=== PATIENT | female | born 1960 | race Caucasian/White ===

== ENCOUNTER 2022-07-23 15:43 | Emergency (ER) | payer MEDICARE, MEDICAID ==
[~2022-07-23] VITALS: Ht 162.6 cm; Wt 65.9 kg
[2022-07-23 15:55] VITALS: BP 115/84
--- NOTE | 2022-07-23 16:12 | NUR ---
Transport home is daughter Daysi,
[2022-07-23] MEDS ORDERED: LIDOcaine 5% patch TP STA (17:16)
[2022-07-23] MEDS ORDERED: HYDROcodone/acetaminophen 10/325mg tab PO ONE (17:20)
[2022-07-23] MEDS ORDERED: HYDR-3968 PO (18:23)
== END 2022-07-23 18:34 | disposition home or self-care (01) ==
LOC: ER 15:43
DX: M19.011 Primary osteoarthritis, right shoulder (principal); M25.511 Pain in right shoulder; G89.29 Other chronic pain; Z88.6 Allergy status to analgesic agent; Z88.1 Allergy status to other antibiotic agents
CPT/HCPCS: 99283

== ENCOUNTER 2022-11-01 06:04 | Inpatient (IN) | payer BC, MEDICAID ==
[2022-10-27 12:07] LABS: CLARITY,URINE CLEAR (Clear); COLOR,URINE YELLOW (Yellow); GLUCOSE, URINE NEGATIVE (Neg); KETONES,URINE NEGATIVE (Neg); LEUKOCYTE ESTERASE ,URINE NEGATIVE (Neg); NITRITES, URINE NEGATIVE (Neg); OCCULT BLOOD,URINE NEGATIVE (Neg); PH,URINE 5.5 (4.8-8.0); PROTEIN,URINE NEGATIVE (Neg); UROBILINOGEN,URINE 0.2 E.U/dL (0.2-1.0)
[2022-10-27 12:13] LABS: UA COLLECTION TYPE CLN CATCH MIDSTREAM
[2022-10-27 12:14] LABS: BASOPHILS % (AUTO) 0.2 % (0-1); EOSINOPHILS # (AUTO) 0.2 X10'3 (0-0.9); EOSINOPHILS % (AUTO) 2.5 % (0-6); LYMPHOCYTES # (AUTO) 2.2 X10'3 (1.1-4.8); LYMPHOCYTES % (AUTO) 23.8 % (21-51); MEAN CORPUSCULAR HEMOGLOBIN 29.3 PG (27.0-31.0); MEAN CORPUSCULAR HGB CONC 33.3 g/dL (33.0-36.5); MEAN PLATELET VOLUME 7.6 FL (7.4-10.4); MONOCYTES # (AUTO) 0.8 X10'3 (0-0.9); MONOCYTES % (AUTO) 8.3 % (2-12); NEUTROPHILS % (AUTO) 65.2 % (42-75); PRE OP HEMATOCRIT 41.5 % (35.0-45.0); PRE OP HEMOGLOBIN 13.8 g/dL (12.0-16.0); PRE OP PLATELET COUNT 281 X10'3 (140-440); RED BLOOD COUNT 4.71 X10'6 (4.20-5.60); RED CELL DISTRIBUTION WIDTH 15.8 % (11.5-14.5)
[2022-10-27 12:40] LABS: ALBUMIN 3.9 G/DL (3.4-5.0); ALBUMIN/GLOBULIN RATIO 0.9 (1.1-1.5); ALKALINE PHOSPHATASE 99 IU/L (46-116); BLOOD UREA NITROGEN 18 MG/DL (7-18); BUN/CREATININE RATIO 20.9 (10.0-20.0); CALCIUM 9.5 MG/DL (8.5-10.1); CHLORIDE 104 MMOL/L (99-107); CREATININE 0.86 MG/DL (0.40-0.90); PRE OP ALT 46 U/L (30-65); PRE OP ANION GAP 9 (8-16); PRE OP AST 38 U/L (10-37); PRE OP BILIRUB, TOTAL 0.3 MG/DL (0.0-1.0); PRE OP GLUCOSE 77 MG/DL (70-104); PRE OP POTASSIUM 3.8 MMOL/L (3.4-5.1); PRE OP SODIUM 140 MMOL/L (135-145); TOTAL CARBON DIOXIDE 27.4 MMOL/L (24-32); TOTAL PROTEIN 8.2 G/DL (6.4-8.2); eGFR 67 ML/MIN
[~2022-11-01] VITALS: Ht 162.6 cm; Wt 71.0 kg
[2022-11-01] VITALS (17 sets, daily range): BP systolic 118–165; BP diastolic 69–110
[2022-11-01] MEDS: famotidine 20mg tablet PO ONE ×2 (05:30→06:58)
[~2022-11-01 06:04] MED LIST: ALBU6.7H14 INH; DIPH-186 PO; DIPH25TA62 PO; ETAN50CA3 SUBCUT; HYDR25TA5 PO; LOSA50TA3 PO; ONDA4TAB12 PO; TIZA4TAB11 PO; TRAZ-251 PO; cefazolin 2gm/D5W 100mL 100 ML IV ONE; ringers solution, lacted 1,000 ML IV SCH
--- NOTE | 2022-11-01 11:31 | NUR ---
PATIENT VERY PAINFULL, DR RODRIGUEZ HAS BEEN CONTACTED AND IS IN OR UNABLE TO CONSENT PATIENT FOR SURGERY AND STATED WHEN HE COMES OUT IN 20MIN WILL CONSENT PATIENT AND THEN WILL GIVE ORDERS FOR PAIN MEDS. I EXPLAINED THIS TO PATIENT AND SHE IS AWARE CONSENT NEEDS TO BE DONE PRIOR TO NARCOTIC ADMINISTRATION.
[2022-11-01] MEDS ORDERED: ketorolac trometh. 30mg/ml inj. ONE (11:49)
[2022-11-01] MEDS ORDERED: BUPIVAcaine/PF 5 mg/ml 10ml ONE ×2 (11:50→11:57)
[2022-11-01] MEDS ORDERED: ROPIVAcaine 0.5% (5mg/ml) 30ml vial ONE (11:50)
[2022-11-01] MEDS ORDERED: BUPIVACAINE liposomal/PF 13.3 MG/ML vial IM ONE (11:57)
[2022-11-01] MEDS ORDERED: vancomycin 1,000mg inj ONE (11:58)
[2022-11-01] MEDS ORDERED: fentaNYL/PF 50MCG/1 ML 2ML syringe ONE ×2 (12:05→13:08)
[2022-11-01] MEDS ORDERED: midazolam 1 mg/ML 2ml injection ONE (12:05)
[2022-11-01] MEDS ORDERED: tranexamic acid 100mg/ml inj. ONE (12:33)
[2022-11-01] MEDS ORDERED: propofol inj 20 ML IV ONE (13:08)
[2022-11-01] MEDS ORDERED: morphine 2 MG/ML inj. syringe IV PRN (13:30)
[2022-11-01] MEDS ORDERED: ondansetron/PF 4mg/2ml inj IV PRN (13:30)
[2022-11-01] MEDS ORDERED: labetalol 20mg/4ml (5mg/ml) syringe IV PRN (13:30)
[2022-11-01] MEDS ORDERED: proCHLORperazine 10 MG/2 ml inj IV PRN (13:30)
[2022-11-01] MEDS ORDERED: ringers solution, lacted 1,000 ML IV SCH (13:30)
[2022-11-01] MEDS ORDERED: ketorolac trometh. 30mg/ml inj. IV ONE (13:30)
[2022-11-01] MEDS ORDERED: meperidine/PF 25mg/ml syringe IV PRN ×3 (13:30)
[2022-11-01] MEDS ORDERED: morphine 4 MG/ML inj SYRINge IV PRN (13:30)
[2022-11-01] MEDS ORDERED: labetalol 20mg/4ml (5mg/ml) syringe IV ONE (14:37)
[2022-11-01] MEDS ORDERED: acetaminophen 1,000mg/100ml IV 100 ML IV ONE (14:38)
[2022-11-01] MEDS ORDERED: ondansetron/PF 4mg/2ml inj ONE (14:42)
[2022-11-01] MEDS ORDERED: dexamethasone sod phosphate 4mg/ml inj. ONE (14:42)
--- NOTE | 2022-11-01 15:06 | NUR ---
Received from OR via HOSPITAL BED TO RECOVERY ROOM BED 6, accompanied by DR PALMER Anesthesiologist and report given by Anesthesiolgist. PT PRESENTS WITH 20G LEFT AC,SPO2 100% 10L MASK, LR RUNNING AT 100MLS/HR, VSS. Addendum: 11/01/22 at 1539 by Cherise Ervin RN, RN Amended: Links added.
[2022-11-01] MEDS ORDERED: diphenhydrAMINE 25mg capsule PO PRN (15:15)
[2022-11-01] MEDS ORDERED: naloxone 0.4 mg/ml inj IV PRN (15:15)
[2022-11-01] MEDS ORDERED: oxyCODONE IR 5mg (immed. release) tablet PO PRN (15:15)
[2022-11-01] MEDS: potassium cl 20mEq in 1/2 NS 1,000 ML IV SCH (15:15)
[2022-11-01] MEDS ORDERED: bisacodyl 10mg suppository rectal RC PRN (15:15)
[2022-11-01] MEDS ORDERED: acetaminophen 325mg tablet PO PRN (15:15)
--- NOTE | 2022-11-01 16:34 | NUR ---
SHOULDER WRAP WITH POWDER PACK PLACED ON RIGHT SHOULDER
--- NOTE | 2022-11-01 17:06 | NUR ---
Report called to receiving nurse GIACOMO SALDIVAR. Transferred via HOSPITAL BED TO ROOM 360B. BED IN [facility] POSTION WITH CALL LIGHT IN REACH, PT HOOKED UP TO BEDSIDE MONITOR. GIACOMO SALDIVAR AT BEDSIDE. MISHA PT Belonging BAGS TO PT ROOM. Special Issues communicated to receiving nurse. Addendum: 11/01/22 at 1724 by Cherise Ervin RN RN Amended: Links added.
[2022-11-01] MEDS ORDERED: diphenoxylate/atropine tablet (Lomotil) PO PRN (19:25)
[2022-11-01] MEDS: oxyCODONE IR 5mg (immed. release) tablet PO PRN (19:28)
[2022-11-01] MEDS: sennosides 8.6mg tablet PO SCH (19:29)
[2022-11-01] MEDS ORDERED: albuterol 2.5 MG/3 ML nebule NEB PRN (20:00)
[2022-11-01] MEDS ORDERED: cefazolin 2gm/D5W 100mL 100 ML IV SCH (20:00)
[2022-11-01] MEDS ORDERED: losartan 50mg tablet PO SCH (21:00)
[2022-11-01] MEDS ORDERED: traZODone 50mg tablet PO PRN (22:50)
[2022-11-01] MEDS: ondansetron 4mg rapidly disintigrating tab PO PRN (23:10)
[2022-11-02] MEDS: oxyCODONE IR 5mg (immed. release) tablet PO PRN ×3 (00:18→12:11)
[2022-11-02 00:21] VITALS: BP 127/70
--- NOTE | 2022-11-02 01:30 | NUR ---
PT WAS NAUSEOUS AND HAD EMESIS; WAS VERY ANXIOUS. SHE PULLED OUT HER IV BY ACCIDENT; VERY IMPULSIVE. HER ORAL ZOFRAN WAS GIVEN AND DID NOT RELIEVE HER NAUSEA AND VOMITING. IV ZOFRAN WAS GIVEN. PATIENT WAS STILL NAUSEOUS BUT WAS ABLE TO REST SOME. WILL CONTINUE TO MONITOR.
[2022-11-02 02:00] VITALS: BP 180/99
[2022-11-02] MEDS: ondansetron/PF 4mg/2ml inj IV PRN ×2 (02:06→19:09)
[2022-11-02] MEDS: potassium cl 20mEq in 1/2 NS 1,000 ML IV SCH ×2 (04:35→22:02)
--- NOTE | 2022-11-02 05:50 | NUR ---
PT WAS GIVEN SOME SALTINES CRACKERS TO HELP SETTLE HER STOMACH. PATIENT WAS NAUSEOUS AND VOMITED AFTER TAKING HER OXY IR. Addendum: 11/02/22 at 0702 by Maria Eugenia Hernandez RN PT ALSO PULLED OUT HER IV PRIOR TO GIVING HER OXY IR AT AROUND 0550
[2022-11-02 06:00] VITALS: BP 196/92
--- NOTE | 2022-11-02 06:05 | NUR ---
Problems reprioritized. Patient report given, questions answered & plan of care reviewed with JANNA GOODEN.
[2022-11-02] MEDS: HYDROchlorothiazide 25mg tablet PO SCH (08:00)
[2022-11-02] MEDS ORDERED: cefazolin 2gm/D5W 100mL 100 ML IV ONE (08:00)
[2022-11-02] MEDS: ondansetron 4mg rapidly disintigrating tab PO PRN (08:25)
[2022-11-02 08:40] LABS: ANION GAP 11 (8-16); CHLORIDE 103 MMOL/L (99-107); POTASSIUM 3.2 MMOL/L (3.5-5.1); SODIUM 139 MMOL/L (135-145); TOTAL CARBON DIOXIDE 24.9 MMOL/L (24-32)
[2022-11-02 08:41] LABS: BASOPHILS % (AUTO) 0.1 % (0-1); EOSINOPHILS % (AUTO) 0 % (0-6); HEMATOCRIT 36.5 % (35.0-45.0); HEMOGLOBIN 11.9 g/dl (12.0-16.0); LYMPHOCYTES # (AUTO) 1.3 X10'3 (1.1-4.8); LYMPHOCYTES % (AUTO) 7.5 % (21-51); MEAN CORPUSCULAR HEMOGLOBIN 28.7 PG (27.0-31.0); MEAN CORPUSCULAR HGB CONC 32.7 g/dL (33.0-36.5); MEAN CORPUSCULAR VOLUME 87.8 FL (78-98); MEAN PLATELET VOLUME 8.3 FL (7.4-10.4); MONOCYTES # (AUTO) 1.8 X10'3 (0-0.9); MONOCYTES % (AUTO) 10.2 % (2-12); NEUTROPHILS # (AUTO) 14.3 X10'3 (1.8-7.7); NEUTROPHILS % (AUTO) 82.2 % (42-75); PLATELET COUNT 295 X10'3 (140-440); RED BLOOD COUNT 4.16 X10'6 (4.20-5.60); RED CELL DISTRIBUTION WIDTH 14.9 % (11.5-14.5); WHITE BLOOD COUNT 17.4 X10'3 (4.5-11.0)
[2022-11-02 10:00] VITALS: BP 124/87
[2022-11-02] MEDS ORDERED: hydrALAZINE 20mg/ml inj. IV PRN (11:00)
[2022-11-02] MEDS ORDERED: LORazepam 2 mg/ml vial IV ONE (11:55)
--- NOTE | 2022-11-02 11:58 | NUR ---
Joint surgery consult: Pt s/p R shoulder surgery this admit per EMR. Pt seen by RD for written/verbal high protein diet ed w/ RD contact information provided. Pt reports gastroparesis hx takes medication at home currently having N/V from gastroparesis since early this AM. Pt reports eats smaller more frequent meals at home declines nutrition concerns related to gastroparesis. RD encouraged pt to contact dietitian's office if further nutrition questions/concerns. Addendum: 11/02/22 at [address] Amended: Links added.
[2022-11-02] MEDS ORDERED: calcium carbonate 500mg chew tablet PO STA (12:00)
[2022-11-02] MEDS ORDERED: metoclopramide 5 mg/ml inj IV PRN (12:10)
[2022-11-02] MEDS: calcium carbonate 500mg chew tablet PO SCH ×2 (12:30→17:30)
[2022-11-02] MEDS ORDERED: losartan 25mg tablet PO SCH (14:12)
[2022-11-02] MEDS ORDERED: potassium Cl 20 mEq SR tablet PO PRN ×2 (16:25)
[2022-11-02] MEDS ORDERED: magnesium 2GM in 50ml NS 50 ML IV PRN (16:25)
[2022-11-02] MEDS ORDERED: potassium Cl 40MEQ/1/2NS 520ml 520 ML IV PRN (16:25)
[2022-11-02] MEDS ORDERED: magnesium Cl slow-release 64mg tablet PO PRN (16:25)
[2022-11-02] MEDS ORDERED: magnesium 4gm in 100ml NS 100 ML IV PRN (16:25)
--- NOTE | 2022-11-02 16:45 | NUR ---
Patient is awake, states she would like to go back to sleep. "reset"
--- NOTE | 2022-11-02 17:00 | NUR ---
Call from Dr Melendez, update on patient. Plan home tomorrow.
--- NOTE | 2022-11-02 18:20 | NUR ---
Report to Maria Eugenia SALDIVAR
[2022-11-02] MEDS: LORazepam 2 mg/ml vial IV PRN (19:09)
[2022-11-02 19:10] VITALS: BP 166/79
[2022-11-02] MEDS: K and/or MAG REPLACEMENT MC SCH (20:00)
[2022-11-02] MEDS: famotidine/PF 10 mg/ml inj IV SCH (20:40)
[2022-11-02] MEDS: sennosides 8.6mg tablet PO SCH (21:00)
[2022-11-02 22:00] VITALS: BP 158/85
[2022-11-03] MEDS: LORazepam 2 mg/ml vial IV PRN (04:11)
[2022-11-03] MEDS: ondansetron/PF 4mg/2ml inj IV PRN ×2 (04:27→12:44)
[2022-11-03 04:43] LABS: BASOPHILS % (AUTO) 0.2 % (0-1); EOSINOPHILS % (AUTO) 0 % (0-6); HEMATOCRIT 32.1 % (35.0-45.0); HEMOGLOBIN 10.7 g/dl (12.0-16.0); LYMPHOCYTES # (AUTO) 2.2 X10'3 (1.1-4.8); LYMPHOCYTES % (AUTO) 12.9 % (21-51); MEAN CORPUSCULAR HEMOGLOBIN 29.1 PG (27.0-31.0); MEAN CORPUSCULAR HGB CONC 33.3 g/dL (33.0-36.5); MEAN CORPUSCULAR VOLUME 87.3 FL (78-98); MEAN PLATELET VOLUME 7.8 FL (7.4-10.4); MONOCYTES # (AUTO) 2.2 X10'3 (0-0.9); MONOCYTES % (AUTO) 12.6 % (2-12); NEUTROPHILS # (AUTO) 12.8 X10'3 (1.8-7.7); NEUTROPHILS % (AUTO) 74.3 % (42-75); PLATELET COUNT 313 X10'3 (140-440); RED BLOOD COUNT 3.67 X10'6 (4.20-5.60); RED CELL DISTRIBUTION WIDTH 14.3 % (11.5-14.5); WHITE BLOOD COUNT 17.3 X10'3 (4.5-11.0)
[2022-11-03 04:55] LABS: ALANINE AMINOTRANSFERASE 23 U/L (12-78); ALBUMIN 2.8 G/DL (3.4-5.0); ALBUMIN/GLOBULIN RATIO 0.8 (1.1-1.5); ALKALINE PHOSPHATASE 58 IU/L (46-116); ANION GAP 6 (8-16); ASPARTATE AMINO TRANSFERASE 20 U/L (10-37); BILIRUBIN,TOTAL 0.7 MG/DL (0.1-1.0); BLOOD UREA NITROGEN 12 MG/DL (7-18); BUN/CREATININE RATIO 20.3 (10.0-20.0); CALCIUM 7.8 MG/DL (8.5-10.1); CHLORIDE 101 MMOL/L (99-107); CREATININE 0.59 MG/DL (0.40-0.90); GLUCOSE 111 MG/DL (70-104); POTASSIUM 5.4 MMOL/L (3.5-5.1); SODIUM 133 MMOL/L (135-145); TOTAL PROTEIN 6.4 G/DL (6.4-8.2); eGFR > 90 ML/MIN
[2022-11-03 05:14] LABS: TOTAL CELLS COUNTED 100
[2022-11-03 05:16] LABS: ELLIPTOCYTES FEW; PLATELET ESTIMATE NORMAL
[2022-11-03 05:17] LABS: POIKILOCYTOSIS FEW
--- NOTE | 2022-11-03 06:11 | NUR ---
Problems reprioritized. Patient report given, questions answered & plan of care reviewed with JANNA BENSON.
--- NOTE | 2022-11-03 07:00 | NUR ---
Problems reprioritized. Patient report given, questions answered & plan of care reviewed with Maria Eugenia SALDIVAR.
[2022-11-03 07:04] VITALS: BP 149/69
[2022-11-03] MEDS: K and/or MAG REPLACEMENT MC SCH (08:00)
[2022-11-03] MEDS: calcium carbonate 500mg chew tablet PO SCH ×2 (08:05→12:42)
[2022-11-03] MEDS: HYDROchlorothiazide 25mg tablet PO SCH (08:05)
[2022-11-03] MEDS: famotidine/PF 10 mg/ml inj IV SCH (08:05)
[2022-11-03] MEDS ORDERED: normal saline 1000ml 1,000 ML IV SCH (08:10)
[2022-11-03] MEDS: oxyCODONE IR 5mg (immed. release) tablet PO PRN ×2 (08:22→12:42)
[2022-11-03 11:00] VITALS: BP 113/76
[2022-11-03 12:51] LABS: ALBUMIN 2.9 G/DL (3.4-5.0); ANION GAP 10 (8-16); BLOOD UREA NITROGEN 12 MG/DL (7-18); BUN/CREATININE RATIO 19.7 (10.0-20.0); CALCIUM 8.8 MG/DL (8.5-10.1); CHLORIDE 101 MMOL/L (99-107); CREATININE 0.61 MG/DL (0.40-0.90); GLUCOSE 101 MG/DL (70-104); POTASSIUM 3.2 MMOL/L (3.5-5.1); SODIUM 136 MMOL/L (135-145); TOTAL CARBON DIOXIDE 24.9 MMOL/L (24-32); eGFR > 90 ML/MIN
--- NOTE | 2022-11-03 14:29 | NUR ---
Received discharge orders, reviewed with patient, understanding verbalized. IV removed with cannula intact. Patient wheeled to lobby by staff with belongings.
== END 2022-11-03 15:00 | disposition home or self-care (01) | DRG 483 ==
LOC: PAS IN 06:04 → SUR 3N 17:27
PROVIDERS: ADMIT Specialist; ATTEND Specialist
PROC: 0LS30ZZ Reposition Right Upper Arm Tendon, Open Approach (ICD-10-PCS; 2022-11-01)
PROC: 0RRJ00Z Replacement of Right Shoulder Joint with Reverse Ball and Socket Synthetic Substitute, Open Approach (ICD-10-PCS; principal; 2022-11-01 12:04)
DX: M19.011 Primary osteoarthritis, right shoulder (principal); M06.811 Other specified rheumatoid arthritis, right shoulder; D72.829 Elevated white blood cell count, unspecified; K31.84 Gastroparesis; F32.A Depression, unspecified; E87.6 Hypokalemia; I10 Essential (primary) hypertension; M65.811 Other synovitis and tenosynovitis, right shoulder; M85.80 Other specified disorders of bone density and structure, unspecified site; Z79.899 Other long term (current) drug therapy; Z82.49 Family history of ischemic heart disease and other diseases of the circulatory system; Z88.8 Allergy status to other drugs, medicaments and biological substances; Z90.49 Acquired absence of other specified parts of digestive tract; Z98.51 Tubal ligation status; Z87.891 Personal history of nicotine dependence
CPT/HCPCS: 36415; 71046; 73020; 73030; 76000; 80048; 80051; 80053; 81003; 82948; 84443; 85007; 85025; 85610; 85730; 86885; 86900; 86901; 87081; 97110; 97161; 97530; A4615; C9290; G0378; J0131; J0690; J1100; J1885; J2060; J2175; J2250; J2405; J2704; J2765; J2795; J3010; J3370; J3480; J3490; J7030; J7120

== ENCOUNTER 2025-01-24 09:32 | Outpatient (CLI) | payer MEDICARE, MEDICAID ==
[~2025-01-24 09:32] MED LIST changes: +LOSA-416 PO; -LOSA50TA3 PO; +ONDA-243 PO; -ONDA4TAB12 PO; -cefazolin 2gm/D5W 100mL 100 ML IV ONE; -ringers solution, lacted 1,000 ML IV SCH
--- NOTE | 2025-01-24 10:52 | RADIOLOGY REPORT ---
INDICATION: LUMBAR PAIN COMPARISON: None TECHNIQUE: 5 views of the lumbar spine were obtained. FINDINGS: The lumbar vertebral alignment is normal. Moderate multilevel degenerative disc disease of the lumbosacral spine. No acute fracture, vertebral compression deformity or aggressive osseous lesions. The paravertebral soft tissues are grossly unremarkable. IMPRESSION: No acute fracture.
== END 2025-01-24 23:59 | disposition home or self-care (01) ==
LOC: RAD 09:32
PROVIDERS: ATTEND Nurse Practitioner
DX: M51.370 Other intervertebral disc degeneration, lumbosacral region with discogenic back pain only (principal); M48.061 Spinal stenosis, lumbar region without neurogenic claudication
CPT/HCPCS: 72110